=== PATIENT | female | born 1955 | race Caucasian/White ===

== ENCOUNTER 2020-01-19 14:50 | Outpatient (CLI) | payer MEDICARE, SELFPAY ==
--- NOTE | ~2020-01-19 | MM_ITS ---
EXAMINATION: MM screening [facility] BI w torie HISTORY: Screening mammogram TECHNIQUE: Craniocaudal and mediolateral oblique 3-D tomosynthesis images were obtained and synthetic 2-D images were generated. CAD analysis was submitted and interpreted. COMPARISON: 01/09/2019, 01/02/2018, 12/31/2016 BREAST PARENCHYMAL COMPOSITION: There are scattered areas of fibroglandular density. FINDINGS: A focal asymmetry in the middle third of the outer right breast is stable on multiple prior examinations. There is no evidence of suspicious mass, calcification, or architectural distortion to suggest malignancy in either breast. There has been no suspicious interval change. IMPRESSION: 1. No mammographic evidence of malignancy. 2. Recommend routine screening mammography in one year. BI-RADS Category 2: Benign finding(s). Reviewed, dictated and finalized at location A.
== END 2020-01-19 14:51 | disposition home or self-care (01) ==
LOC: CHSIMG 14:54
PROVIDERS: PCP Internal Medicine; Visit Provider Internal Medicine
DX: Z12.31 Encounter for screening mammogram for malignant neoplasm of breast (principal)
CPT/HCPCS: 77063; 77067

== ENCOUNTER 2020-01-20 07:55 | Outpatient (CLI) | payer MEDICARE, SELFPAY ==
[2020-01-20 08:17] LABS: Hemoglobin A1C 6.4 % (<5.7)
[2020-01-20 11:13] LABS: Anion Gap 12.3 mmol/L (7-16); Blood Urea Nitrogen 27 mg/dL (7-18); Calcium 9.4 mg/dL (8.5-10.1); Carbon Dioxide 29 mmol/L (21-32); Chloride 106 mmol/L (98-108); Estimated Glomerular Filt Rate 55; Glucose 91 mg/dL (70-99); Osmolality Calculated 299 mOsm/kg (285-295); Potassium 5.3 mmol/L (3.5-5.1); Sodium 142 mmol/L (136-145)
== END 2020-01-20 07:56 | disposition home or self-care (01) ==
PROVIDERS: PCP Internal Medicine; Visit Provider Internal Medicine
DX: E11.65 Type 2 diabetes mellitus with hyperglycemia (principal)
CPT/HCPCS: 36415; 80048; 83036

== ENCOUNTER 2020-01-29 08:01 | Outpatient (CLI) | payer MEDICARE, SELFPAY ==
--- NOTE | ~2020-01-29 | US_ITS ---
US pelvic complete w TV DATE: 01/29/2020 10:16 INDICATION: Excessive weight gain. Status post hysterectomy and oophorectomy. TECHNIQUE: Real-time imaging via transabdominal and transvaginal approaches COMPARISON: None FINDINGS: An approximately 5 cm multi-septated cystic lesion is noted in the left adnexal area, with suggestion of solid as well as cystic components. This is likely of ovarian etiology; benign or malig nant pathology is possible. Consider further evaluation with CT abdomen pelvis examination. IMPRESSION: Approximately 5 cm multiloculated cyst complex solid and cystic mass in the left adnexal area suggesting ovarian lesion. Consider CT abdomen pelvis for further evaluation Reviewed, dictated and finalized at Location A. Reviewed, dictated and finalized at location A. IMPRESSION: Approximately 5 cm multiloculated cyst complex solid and cystic mas s in the left adnexal area suggesting ovarian lesion. Consider CT abdomen pelvis for further evaluation
--- NOTE | ~2020-01-29 | US_ITS ---
US abdomen complete EXAMINATION: US Abdomen Complete INDICATION: Weight gain after changing meds. Possible ascites. PROCEDURE: Realtime High Resolution abdomen ultrasound. COMPARISON: No prior studies for comparison FINDINGS: Gallbladder within normal limits. No gallstones, pericholecystic fluid, gallbladder wall t hickening or biliary dilatation. Common bile duct measures 4 mm. Liver echotexture within normal limits without focal mass. Pancreas within normal limits. Pancreati c tail is obscured by bowel gas. Spleen is enlarged measuring 13.3 cm. Renal echotexture is within n ormal limits bilaterally without hydronephrosis, contour deforming mass or renal stone. Right kidney measures 9.8 cm. Left kidney measures 11.3 cm. Visualized aspects of the aorta and IVC are within normal limits. Portal vein is patent. No sonograph ic Rodrigues's sign indicated by the technologist. No ascites visualized. IMPRESSION: 1: Splenomegaly. Reviewed, dictated and finalized at location B. IMPRESSION: 1: Splenomegaly.
== END 2020-01-29 08:02 | disposition home or self-care (01) ==
PROVIDERS: PCP Internal Medicine; Visit Provider Internal Medicine
DX: R18.8 Other ascites (principal)
CPT/HCPCS: 76700; 76830; 76856

== ENCOUNTER 2020-02-03 07:45 | Outpatient (CLI) | payer MEDICARE, SELFPAY ==
--- NOTE | ~2020-02-03 | CT_ITS ---
EXAMINATION: CT abdomen pelvis w con DATE: 02/03/2020 08:28 INDICATION: Left ovarian mass. Sudden weight gain and fluid buildup. History of surgical removal of the uterus and ovaries. Partial colon resection due to endometriosis. TECHNIQUE: Computed tomography (CT) of the abdomen and pelvis was performed with 100 cc Omnipaque 350 intravenous contrast. Automated exposure control and iterative reconstruction technique were employe d. Exam dose: 1561.25 mGy-cm total exam DLP. COMPARISON: 01/29/2020 complete abdominal ultrasound examination 01/29/2020 pelvic ultrasound examination with transvaginal views FINDINGS: 5 mm pleura-based nodule, left lower lobe (series 4 image 29) there are 3 additional pleura l-based nodules in the left lower lobe, with attenuation consistent with calcification. These are all likely sequela of old pulmonary granulomatous disease. There is minimal discoid atelectasis or scarr ing of the lingula. Heart size is within normal range. No pericardial or pleural effusion. Small sliding hiatal hernia. The gallbladder is present. No gallbladder wall thickening or pericholecystic fluid or inflammation. No hepatic space-occupying mass lesion. No bile duct or pancreatic duct dilatation. No pancreatic mas s lesion or calcification. Normal splenic size. Normal morphology of the adrenal glands. No renal mass lesion. No urinary tract calculus or hydroureteronephrosis. The urinary bladder is unre markable. There is atherosclerotic calcification of the abdominal aorta but no aneurysm. There are numerous surgical clips in the pelvic area. The uterus is absent. No right ovary is evident . There is a left adnexal approximately 4 x 4 0.5 cm multilocular complex mass. Diffusion diagnosis i ncludes ovarian cystadenoma, cystadenocarcinoma, endometrioma, less likely abscess. Consider gynecolo gic consultation. No bowel obstruction, bowel wall thickening, pneumatosis or intraperitoneal free air. There are ventral abdominal wall radiopaque sutures. Surgical abdominal wall scar. There is severe degenerative disc disease at L5-S1. Moderate degenerative disease is noted at L3-4, w ith associated minimal retrolisthesis. IMPRESSION: Approximately 4 x 4.5 cm multiloculated complex left adnexal mass; differential diagnosi s includes ovarian benign or malignant neoplasm, endometrioma, less likely abscess [Granulomatous disease Small sliding hiatal hernia Status post hysterectomy Reviewed, dictated and finalized at Location A. Reviewed, dictated and finalized at location B. IMPRESSION: Approximately 4 x 4.5 cm multiloculated complex left adnexal mass; differential diagnosis includes ovarian benign or malignant neoplasm, endometr ioma, less likely abscess [Granulomatous disease Small sliding hiatal hernia Status post hysterectomy
[2020-02-07 04:28] LABS: CA-125 12 U/mL (<35)
== END 2020-02-03 07:46 | disposition home or self-care (01) ==
PROVIDERS: PCP Internal Medicine; Visit Provider Internal Medicine
DX: C56.2 Malignant neoplasm of left ovary (principal); D39.10 Neoplasm of uncertain behavior of unspecified ovary
CPT/HCPCS: 36415; 74177; 86304; Q9965

== ENCOUNTER 2020-03-02 07:28 | Outpatient (CLI) | payer MEDICARE, SELFPAY ==
[2020-03-02 09:01] LABS: Anion Gap 9 mmol/L (8-16); Blood Urea Nitrogen 26 mg/dL (7-18); Calcium 9.5 mg/dL (8.5-10.1); Carbon Dioxide 31 mmol/L (21-32); Chloride 103 mmol/L (98-108); Estimated Glomerular Filt Rate 52; Glucose 73 mg/dL (70-99); Osmolality Calculated 299 mOsm/kg (285-295); Potassium 4.5 mmol/L (3.5-5.1); Sodium 143 mmol/L (136-145); Uric Acid 6.9 mg/dL (2.6-6.0)
== END 2020-03-02 07:29 | disposition home or self-care (01) ==
LOC: CHSLAB 07:29
PROVIDERS: PCP Internal Medicine; Visit Provider Internal Medicine
DX: E79.0 Hyperuricemia without signs of inflammatory arthritis and tophaceous disease (principal); I10 Essential (primary) hypertension
CPT/HCPCS: 36415; 80048; 84550

== ENCOUNTER 2020-04-27 08:09 | Outpatient (CLI) | payer MEDICARE, SELFPAY ==
[2020-04-27 08:34] LABS: Add Urine Microscopic? NO; Appearance Urine Clear (Clear); Bilirubin Urine Negative (Negative); Blood Urine Negative (Negative); Color Urine Yellow (Yellow); Glucose Urine UA Negative (Negative); Ketones Urine Negative (Negative); Leukocyte Esterase Ur Negative (Negative); Nitrate Urine Negative (Negative); Protein Urine Negative (Negative); Urobilinogen Urine 0.2 mg/dL (0.2-1.0)
[2020-04-27 08:40] LABS: Hemoglobin A1C 6.7 % (<5.7)
[2020-04-27 08:57] LABS: Creatinine Urine 87.64 mg/dL (40-278); MALB Creatinine Ratio 14.8 mg/g (0-30); Microalbumin Urine Random < 13.0 mg/L
[2020-04-27 09:37] LABS: Alanine Aminotransferase 39 U/L (14-59); Albumin Level 4.4 g/dL (3.4-5.0); Alkaline Phosphatase 63 U/L (46-116); Anion Gap 11 mmol/L (8-16); Aspartate Amino Transferase 19 U/L (15-37); Bilirubin,Total 0.5 mg/dL (0.00-1.00); Blood Urea Nitrogen 22 mg/dL (7-18); Calcium 9.4 mg/dL (8.5-10.1); Carbon Dioxide 26 mmol/L (21-32); Chloride 104 mmol/L (98-108); Cholesterol 194 mg/dL (0-200); Creatine Kinase 74 U/L (26-192); Estimated Glomerular Filt Rate > 60; Glucose 148 mg/dL (70-99); HDL Direct 60 mg/dL (40-60); LDL Cholesterol Calculated 105 mg/dL (<130); Osmolality Calculated 298 mOsm/kg (285-295); Sodium 141 mmol/L (136-145); Total Protein 7.6 g/dL (6.4-8.2); Triglycerides 144 mg/dL (0-150); Uric Acid 4.7 mg/dL (2.6-6.0)
== END 2020-04-27 08:10 | disposition home or self-care (01) ==
LOC: CHSLAB 08:10
PROVIDERS: PCP Internal Medicine; Visit Provider Internal Medicine
DX: E79.0 Hyperuricemia without signs of inflammatory arthritis and tophaceous disease (principal); E78.2 Mixed hyperlipidemia; I10 Essential (primary) hypertension
CPT/HCPCS: 36415; 80053; 80061; 81003; 82043; 82550; 83036; 84550

== ENCOUNTER 2020-10-06 10:31 | Outpatient (CLI) | payer MEDICARE, SELFPAY ==
--- NOTE | ~2020-10-06 | DEXA_ITS ---
Bone Density Report Name: Magaly Howard Age: 65 Sex: Female Ethnicity: White Date of : 1955 Indication: postmenopausal; screening for osteoporosis; hysterectomy; Referring Provider: Janki Lutz Study: Bone densitometry was performed. Exam Date: October 06, 2020 Accession number: [id number] Bone Density: Region BMD T-score Z-score Classification AP Spine(L1-L4) 0.941 -1.0 1.0 Normal Femoral Neck (Left) 0.703 -1.3 0.3 Osteopenia Total Hip (Left) 0.973 0.3 1.6 Normal Femoral Neck (Right) 0.730 -1.1 0.6 Osteopenia Total Hip (Right) 0.950 0.1 1.4 Normal Femoral Neck Mean 0.716 -1.2 0.4 Osteopenia Total Hip Mean 0.961 0.2 1.5 Normal World Health Organization criteria for BMD impression classify patients as: Normal (T-score at or above -1.0), Osteopenia (T-score between -1.0 and -2.5), or Osteoporosis (T-score at or below -2.5). 10-year Fracture Risk(1): Major Osteoporotic Fracture 8.6% Hip Fracture 0.9% Reported Risk Factors: [place] (), Neck BMD=0.703, BMI=32.3 (1) FRAX(R) Version 3.08. Fracture probability calculated for an untreated patient. Fracture probability may be lower if the patient has received treatment. Previous Exams: Region Exam Age BMD T-score BMD Change BMD Change Date g/cm2 vs Baseline vs Previous AP Spine (L1-L4) 10/06/2020 65 0.941 -1.0 0.034 (3.8%)# -0.013 (-1.4%) 05/09/2018 62 0.954 -0.8 0.047 (5.2%)* 0.047 (5.2%)* 06/27/2012 57 0.907 -1.3 Total Hip(Left) 10/06/2020 65 0.973 0.3 -0.052 (-5.0%) -0.073 (-7.0%) 05/09/2018 62 1.046 0.9 0.021 (2.1%) 0.021 (2.1%) 06/27/2012 57 1.025 0.7 Total Hip(Right) 10/06/2020 65 0.950 0.1 -0.073 (-7.2%) -0.073 (-7.2%) 06/27/2012 57 1.023 0.7 *Denotes significance at 95% confidence level, LSC for AP Spine = 0.022 g/cm2, LSC for Total Hip = 0.027 g/cm2 # Denotes dissimilar scan types or analysis methods Clinical Information Provided by Patient: Has used the following medications: Vitamin D, Calcium Has the following medical conditions: Hysterectomy Patient maximum height was 70 Onset of menses at age 10 Number of children 2 Missed period for more than 6 months in a row Impression: The patient has low bone mass, based on the Left Femoral Neck T-score. No significant bone loss was observed. Discussion: BONE DENSITY IS LOW AT ONE OR MORE SKELETAL SITES. This patient's low
== END 2020-10-06 10:32 | disposition home or self-care (01) ==
PROVIDERS: PCP Internal Medicine; Visit Provider Internal Medicine
DX: M81.0 Age-related osteoporosis without current pathological fracture (principal)
CPT/HCPCS: 77080

== ENCOUNTER 2020-10-31 07:49 | Outpatient (CLI) | payer MEDICARE, SELFPAY ==
[2020-10-31 08:05] LABS: Add Urine Microscopic? YES; Appearance Urine Clear (Clear); Bilirubin Urine Negative (Negative); Blood Urine Negative (Negative); Color Urine Yellow (Yellow); Glucose Urine UA Negative (Negative); Ketones Urine Negative (Negative); Leukocyte Esterase Ur Trace (Negative); Nitrate Urine Negative (Negative); Protein Urine Negative (Negative); Urobilinogen Urine 0.2 mg/dL (0.2-1.0)
[2020-10-31 08:48] LABS: Bacteria Urine Trace /hpf; RBC Urine 0-2 /hpf (0-2); Squamous Epithelial Cell Urine Moderate /hpf (Few); WBC Urine 0-3 /hpf (0-3)
[2020-10-31 09:42] LABS: Creatinine Urine 100.45 mg/dL (40-278); Hemoglobin A1C 7.5 % (<5.7); MALB Creatinine Ratio 15.2 mg/g (0-30); Microalbumin Urine Random 15.3 mg/L
[2020-10-31 09:57] LABS: Alanine Aminotransferase 55 U/L (14-59); Albumin Level 3.9 g/dL (3.4-5.0); Alkaline Phosphatase 67 U/L (46-116); Anion Gap 9 mmol/L (8-16); Aspartate Amino Transferase 28 U/L (15-37); Bilirubin,Total 0.5 mg/dL (0.00-1.00); Blood Urea Nitrogen 18 mg/dL (7-18); Calcium 9.2 mg/dL (8.5-10.1); Carbon Dioxide 28 mmol/L (21-32); Chloride 104 mmol/L (98-108); Cholesterol 209 mg/dL (0-200); Creatine Kinase 49 U/L (26-192); Estimated Glomerular Filt Rate > 60; Glucose 142 mg/dL (70-99); HDL Direct 43 mg/dL (40-60); LDL Cholesterol Calculated 139 mg/dL (<130); Osmolality Calculated 295 mOsm/kg (285-295); Potassium 4.6 mmol/L (3.5-5.1); Sodium 141 mmol/L (136-145); Triglycerides 137 mg/dL (0-150); Uric Acid 4.7 mg/dL (2.6-6.0)
== END 2020-10-31 07:50 | disposition home or self-care (01) ==
LOC: CHSLAB 07:51
PROVIDERS: PCP Internal Medicine; Visit Provider Internal Medicine
DX: E78.2 Mixed hyperlipidemia (principal); I10 Essential (primary) hypertension; E79.0 Hyperuricemia without signs of inflammatory arthritis and tophaceous disease; E11.65 Type 2 diabetes mellitus with hyperglycemia; M81.0 Age-related osteoporosis without current pathological fracture
CPT/HCPCS: 36415; 80053; 80061; 81001; 82043; 82550; 83036; 84550

== ENCOUNTER 2021-01-20 08:50 | Outpatient (CLI) | payer MEDICARE, SELFPAY ==
--- NOTE | ~2021-01-20 | MM_ITS ---
EXAMINATION: MM screening [facility] BI w torie HISTORY: Screening mammogram TECHNIQUE: Craniocaudal and mediolateral oblique 3-D tomosynthesis images were obtained and synthetic 2-D images were generated. CAD analysis was submitted and interpreted. COMPARISON: 01/19/2020, 01/09/2019, 01/02/2018 BREAST PARENCHYMAL COMPOSITION: There are scattered areas of fibroglandular density. FINDINGS: Again noted is stable focal asymmetry in the middle third of the outer right breast, consis tent with a benign finding. There is no evidence of suspicious mass, calcification, or architectural distortion to suggest malignancy in either breast. There has been no suspicious interval change. IMPRESSION: 1. No mammographic evidence of malignancy. 2. Recommend routine screening mammography in one year. BI-RADS Category 2: Benign finding(s). Reviewed, dictated and finalized at location A.
== END 2021-01-20 08:51 | disposition home or self-care (01) ==
LOC: CHSIMG 08:51
PROVIDERS: PCP Internal Medicine; Visit Provider Internal Medicine
DX: Z12.31 Encounter for screening mammogram for malignant neoplasm of breast (principal)
CPT/HCPCS: 77063; 77067

== ENCOUNTER 2021-01-30 07:58 | Outpatient (CLI) | payer MEDICARE, SELFPAY ==
[2021-01-30 08:23] LABS: Hemoglobin A1C 7.3 % (<5.7)
[2021-01-30 08:24] LABS: Creatinine Urine 127.52 mg/dL (40-278); MALB Creatinine Ratio 12.8 mg/g (0-30); Microalbumin Urine Random 16.4 mg/L
[2021-01-30 09:13] LABS: Alanine Aminotransferase 59 U/L (14-59); Albumin Level 4.2 g/dL (3.4-5.0); Alkaline Phosphatase 58 U/L (46-116); Anion Gap 8 mmol/L (8-16); Aspartate Amino Transferase 30 U/L (15-37); Bilirubin,Total 0.5 mg/dL (0.00-1.00); Blood Urea Nitrogen 23 mg/dL (7-18); Calcium 9.6 mg/dL (8.5-10.1); Carbon Dioxide 30 mmol/L (21-32); Chloride 107 mmol/L (98-108); Cholesterol 227 mg/dL (0-200); Estimated Glomerular Filt Rate > 60; Glucose 98 mg/dL (70-99); HDL Direct 49 mg/dL (40-60); LDL Cholesterol Calculated 147 mg/dL (<130); Osmolality Calculated 303 mOsm/kg (285-295); Potassium 4.6 mmol/L (3.5-5.1); Sodium 145 mmol/L (136-145); Total Protein 7.1 g/dL (6.4-8.2); Triglycerides 155 mg/dL (0-150)
== END 2021-01-30 07:59 | disposition home or self-care (01) ==
LOC: CHSLAB 07:59
PROVIDERS: PCP Internal Medicine; Visit Provider Internal Medicine
DX: E11.65 Type 2 diabetes mellitus with hyperglycemia (principal); E78.2 Mixed hyperlipidemia
CPT/HCPCS: 36415; 80053; 80061; 82043; 83036

== ENCOUNTER 2021-05-24 08:28 | Outpatient (CLI) | payer MEDICARE, SELFPAY ==
[2021-05-24 08:43] LABS: Basophils Absolute Auto 0.02 K/mm3 (0.00-0.10); Basophils Percent Auto 0.3 % (0.0-1.0); Eosinophils Absolute Auto 0.27 K/mm3 (0.02-0.50); Eosinophils Percent Auto 4.4 % (1.0-6.0); Hematocrit 40.6 % (35.0-42.0); Hemoglobin 13.1 g/dL (11.7-13.8); Immature Granulocyte Absolute 0.02 K/mm3 (0.00-0.00); Immature Granulocyte Percent A 0.3 % (0.0-0.0); Lymphocytes Absolute Auto 1.39 K/mm3 (1.10-4.50); Lymphocytes Percent Auto 22.9 % (18.0-42.0); Mean Corpuscular HGB Conc 32.3 g/dL (32.0-36.0); Mean Corpuscular Hemoglobin 29.3 pg (27.0-31.0); Mean Corpuscular Volume 90.8 fL (78.0-102.0); Mean Platelet Volume 9.6 fl (9.2-11.8); Monocytes Absolute Auto 0.47 K/mm3 (0.10-0.90); Monocytes Percent Auto 7.7 % (2.0-11.0); Neutrophils Absolute Auto 3.9 K/mm3 (1.7-7.2); Neutrophils Percent Auto 64.4 % (50.0-70.0); Platelet Count Result 208 K/mm3 (150-420); Red Blood Count 4.47 M/mm3 (4.20-5.40); Red Cell Distribution Width 13.1 % (11.6-14.4); White Blood Count 6.1 K/mm3 (4.8-10.8)
[2021-05-24 08:54] LABS: Add Urine Microscopic? NO; Appearance Urine Clear (Clear); Bilirubin Urine Negative (Negative); Blood Urine Negative (Negative); Color Urine Light Yellow (Yellow); Glucose Urine UA Negative (Negative); Ketones Urine Negative (Negative); Leukocyte Esterase Ur Negative (Negative); Nitrate Urine Negative (Negative); Protein Urine Negative (Negative); Urobilinogen Urine 0.2 mg/dL (0.2-1.0)
[2021-05-24 08:57] LABS: Hemoglobin A1C 7.3 % (<5.7)
[2021-05-24 09:40] LABS: Alanine Aminotransferase 42 U/L (14-59); Albumin Level 4.1 g/dL (3.4-5.0); Alkaline Phosphatase 56 U/L (46-116); Anion Gap 8 mmol/L (8-16); Aspartate Amino Transferase 17 U/L (15-37); Bilirubin,Total 0.5 mg/dL (0.00-1.00); Blood Urea Nitrogen 19 mg/dL (7-18); Calcium 9.2 mg/dL (8.5-10.1); Carbon Dioxide 28 mmol/L (21-32); Chloride 104 mmol/L (98-108); Cholesterol 240 mg/dL (0-200); Creatine Kinase 66 U/L (26-192); Estimated Glomerular Filt Rate > 60; Free T3 2.74 pg/mL (2.18-3.98); Free T4 Free Thyroxine 0.93 ng/dL (0.76-1.46); Glucose 140 mg/dL (70-99); HDL Direct 51 mg/dL (40-60); LDL Cholesterol Calculated 166 mg/dL (<130); Osmolality Calculated 294 mOsm/kg (285-295); Potassium 4.7 mmol/L (3.5-5.1); Sodium 140 mmol/L (136-145); Thyroid Stimulating Hormone 1.17 uIU/mL (0.36-3.74); Total Protein 7.2 g/dL (6.4-8.2); Triglycerides 115 mg/dL (0-150)
== END 2021-05-24 08:29 | disposition home or self-care (01) ==
LOC: CHSLAB 08:30
PROVIDERS: PCP Internal Medicine; Visit Provider Internal Medicine
DX: E11.65 Type 2 diabetes mellitus with hyperglycemia (principal); E79.0 Hyperuricemia without signs of inflammatory arthritis and tophaceous disease; E78.2 Mixed hyperlipidemia; R53.82 Chronic fatigue, unspecified
CPT/HCPCS: 36415; 80053; 80061; 81003; 82550; 83036; 84439; 84443; 84481; 85025

== ENCOUNTER 2021-09-11 08:08 | Outpatient (CLI) | payer MEDICARE, SELFPAY ==
[2021-09-11 09:41] LABS: Hemoglobin A1C 6.7 % (<5.7)
[2021-09-11 10:17] LABS: Anion Gap 12 mmol/L (8-16); Blood Urea Nitrogen 28 mg/dL (7-18); Calcium 9.3 mg/dL (8.5-10.1); Carbon Dioxide 28 mmol/L (21-32); Chloride 105 mmol/L (98-108); Cholesterol 152 mg/dL (0-200); Creatine Kinase 63 U/L (26-192); Estimated Glomerular Filt Rate 60; Glucose 79 mg/dL (70-99); HDL Direct 52 mg/dL (40-60); LDL Cholesterol Calculated 80 mg/dL (<130); Osmolality Calculated 304 mOsm/kg (285-295); Potassium 4.5 mmol/L (3.5-5.1); Sodium 145 mmol/L (136-145); Triglycerides 99 mg/dL (0-150)
== END 2021-09-11 08:09 | disposition home or self-care (01) ==
LOC: CHSLAB 08:10
PROVIDERS: PCP Internal Medicine; Visit Provider Internal Medicine
DX: E78.2 Mixed hyperlipidemia (principal); E11.65 Type 2 diabetes mellitus with hyperglycemia
CPT/HCPCS: 36415; 80048; 80061; 82550; 83036

== ENCOUNTER 2022-02-20 08:21 | Outpatient (CLI) | payer MEDICARE, SELFPAY ==
--- NOTE | ~2022-02-20 | MM_ITS ---
EXAMINATION: MM screening [facility] BI w torie HISTORY: Screening mammogram TECHNIQUE: Craniocaudal and mediolateral oblique 3-D tomosynthesis images were obtained and synthetic 2-D images were generated. CAD analysis was submitted and interpreted. COMPARISON: 01/30/2021, 01/19/2020, 01/09/2019 BREAST PARENCHYMAL COMPOSITION: There are scattered areas of fibroglandular density. FINDINGS: There are stable focal asymmetry of the breasts, consistent with benign findings. There is no suspicious mass, calcification, or architectural distortion to suggest malignancy in either breast . There has been no suspicious interval change. IMPRESSION: 1. No mammographic evidence of malignancy. 2. Recommend routine screening mammography in one year. BI-RADS Category 2: Benign finding(s). Reviewed, dictated and finalized at location A.
== END 2022-02-20 08:22 | disposition home or self-care (01) ==
LOC: CHSIMG 08:23
PROVIDERS: PCP Internal Medicine; Visit Provider Internal Medicine
DX: Z12.31 Encounter for screening mammogram for malignant neoplasm of breast (principal)
CPT/HCPCS: 77063; 77067

== ENCOUNTER 2022-03-13 07:27 | Outpatient (CLI) | payer MEDICARE, SELFPAY ==
[2022-03-13 07:43] LABS: Add Urine Microscopic? NO; Appearance Urine Clear (Clear); Bilirubin Urine Negative (Negative); Blood Urine Negative (Negative); Color Urine Light Yellow (Yellow); Glucose Urine UA Negative (Negative); Ketones Urine Negative (Negative); Leukocyte Esterase Ur Negative (Negative); Nitrate Urine Negative (Negative); Protein Urine Negative (Negative); Urobilinogen Urine 0.2 mg/dL (0.2-1.0)
[2022-03-13 07:55] LABS: Alanine Aminotransferase 25 U/L (14-59); Albumin Level 4.1 g/dL (3.4-5.0); Alkaline Phosphatase 53 U/L (46-116); Anion Gap 3 mmol/L (8-16); Aspartate Amino Transferase 15 U/L (15-37); Bilirubin,Total 0.4 mg/dL (0.00-1.00); Blood Urea Nitrogen 23 mg/dL (7-18); Calcium 9.2 mg/dL (8.5-10.1); Carbon Dioxide 31 mmol/L (21-32); Chloride 104 mmol/L (98-108); Cholesterol 247 mg/dL (0-200); Creatinine Urine 103.45 mg/dL (40-278); Estimated Glomerular Filt Rate 58; Glucose 120 mg/dL (70-99); HDL Direct 54 mg/dL (40-60); Hemoglobin A1C 6.9 % (<5.7); LDL Cholesterol Calculated 164 mg/dL (<130); MALB Creatinine Ratio 12.5 mg/g (0-30); Microalbumin Urine Random < 13.0 mg/L; Osmolality Calculated 290 mOsm/kg (285-295); Potassium 4.6 mmol/L (3.5-5.1); Sodium 138 mmol/L (136-145); Total Protein 7.3 g/dL (6.4-8.2); Triglycerides 144 mg/dL (0-150); Uric Acid 5.1 mg/dL (2.6-6.0)
[2022-03-15 14:17] LABS: Vitamin D 25 Hydroxy 36 ng/mL (30-100)
== END 2022-03-13 07:28 | disposition home or self-care (01) ==
LOC: CHSLAB 07:30
PROVIDERS: PCP Internal Medicine; Visit Provider Internal Medicine
DX: E78.2 Mixed hyperlipidemia (principal); E11.9 Type 2 diabetes mellitus without complications; M81.0 Age-related osteoporosis without current pathological fracture; I10 Essential (primary) hypertension; E79.0 Hyperuricemia without signs of inflammatory arthritis and tophaceous disease
CPT/HCPCS: 36415; 80053; 80061; 81003; 82043; 82306; 83036; 84550

== ENCOUNTER 2022-09-10 07:19 | Outpatient (CLI) | payer MEDICARE, SELFPAY ==
[2022-09-10 07:54] LABS: Add Urine Microscopic? NO; Appearance Urine Clear (Clear); Bilirubin Urine Negative (Negative); Blood Urine Negative (Negative); Color Urine Light Yellow (Yellow); Glucose Urine UA Negative (Negative); Ketones Urine Negative (Negative); Leukocyte Esterase Ur Negative (Negative); Nitrate Urine Negative (Negative); Protein Urine Negative (Negative); Specific Grav Ur 1.025 (1.010-1.020); Urobilinogen Urine 0.2 mg/dL (0.2-1.0)
[2022-09-10 08:01] LABS: Creatinine Urine 160.36 mg/dL (40-278); MALB Creatinine Ratio 8.1 mg/g (0-30); Microalbumin Urine Random < 13.0 mg/L
[2022-09-10 08:03] LABS: Hemoglobin A1C 6.5 % (<5.7)
[2022-09-10 08:23] LABS: Alanine Aminotransferase 23 U/L (14-59); Albumin Level 4.1 g/dL (3.4-5.0); Alkaline Phosphatase 55 U/L (46-116); Anion Gap 9 mmol/L (8-16); Aspartate Amino Transferase 18 U/L (15-37); Bilirubin,Total 0.5 mg/dL (0.00-1.00); Blood Urea Nitrogen 38 mg/dL (7-18); Calcium 9.6 mg/dL (8.5-10.1); Carbon Dioxide 31 mmol/L (21-32); Chloride 103 mmol/L (98-108); Cholesterol 255 mg/dL (0-200); Creatine Kinase 46 U/L (26-192); Estimated Glomerular Filt Rate 48; Glucose 106 mg/dL (70-99); HDL Direct 56 mg/dL (40-60); LDL Cholesterol Calculated 168 mg/dL (<130); Osmolality Calculated 305 mOsm/kg (285-295); Sodium 143 mmol/L (136-145); Total Protein 7.3 g/dL (6.4-8.2); Triglycerides 153 mg/dL (0-150); Uric Acid 7.7 mg/dL (2.6-6.0)
== END 2022-09-10 07:20 | disposition home or self-care (01) ==
LOC: CHSLAB 07:24
PROVIDERS: PCP Internal Medicine; Visit Provider Internal Medicine
DX: E11.65 Type 2 diabetes mellitus with hyperglycemia (principal); I10 Essential (primary) hypertension; E79.0 Hyperuricemia without signs of inflammatory arthritis and tophaceous disease; E78.2 Mixed hyperlipidemia
CPT/HCPCS: 36415; 80053; 80061; 81003; 82043; 82550; 83036; 84550

== ENCOUNTER 2022-12-05 08:12 | Outpatient (CLI) | payer MEDICARE, SELFPAY ==
[2022-12-05 09:28] LABS: Alanine Aminotransferase 23 U/L (14-59); Albumin Level 4.3 g/dL (3.4-5.0); Alkaline Phosphatase 55 U/L (46-116); Anion Gap 7 mmol/L (8-16); Aspartate Amino Transferase 16 U/L (15-37); Bilirubin,Total 0.7 mg/dL (0.00-1.00); Blood Urea Nitrogen 26 mg/dL (7-18); Calcium 9.5 mg/dL (8.5-10.1); Carbon Dioxide 30 mmol/L (21-32); Chloride 104 mmol/L (98-108); Cholesterol 208 mg/dL (0-200); Estimated Glomerular Filt Rate 49; Glucose 118 mg/dL (70-99); HDL Direct 65 mg/dL (40-60); LDL Cholesterol Calculated 124 mg/dL (<130); Osmolality Calculated 297 mOsm/kg (285-295); Potassium 4.8 mmol/L (3.5-5.1); Sodium 141 mmol/L (136-145); Total Protein 7.5 g/dL (6.4-8.2); Triglycerides 93 mg/dL (0-150); Uric Acid 5.3 mg/dL (2.6-6.0)
== END 2022-12-05 08:13 | disposition home or self-care (01) ==
LOC: CHSLAB 08:13
PROVIDERS: PCP Internal Medicine; Visit Provider Internal Medicine
DX: E79.0 Hyperuricemia without signs of inflammatory arthritis and tophaceous disease (principal); I10 Essential (primary) hypertension; E78.2 Mixed hyperlipidemia
CPT/HCPCS: 36415; 80053; 80061; 84550

== ENCOUNTER 2022-12-27 08:30 | Outpatient (CLI) | payer MEDICARE, SELFPAY ==
--- NOTE | ~2022-12-27 | DEXA_ITS ---
Bone Density Report Name: MARJ LOOMIS Age: 67 Sex: Female Ethnicity: White Date of : 1955 Indication: hyperparathyroidism; height loss; hysterectomy; Referring Provider: Janki Lutz Study: Bone densitometry was performed. Exam Date: December 27, 2022 Accession number: [id number] Bone Density: Region BMD T-score Z-score Classification AP Spine(L1-L4) 0.960 -0.8 1.3 Normal Femoral Neck (Left) 0.701 -1.3 0.4 Osteopenia Total Hip (Left) 0.938 0.0 1.4 Normal Femoral Neck (Right) 0.704 -1.3 0.5 Osteopenia Total Hip (Right) 0.960 0.1 1.6 Normal Femoral Neck Mean 0.703 -1.3 0.4 Osteopenia Total Hip Mean 0.949 0.1 1.5 Normal World Health Organization criteria for BMD impression classify patients as: Normal (T-score at or above -1.0), Osteopenia (T-score between -1.0 and -2.5), or Osteoporosis (T-score at or below -2.5). 10-year Fracture Risk(1): Major Osteoporotic Fracture 8.8% Hip Fracture 1.0% Reported Risk Factors: [place] (), Neck BMD=0.701, BMI=33.2 (1) FRAX(R) Version 3.08. Fracture probability calculated for an untreated patient. Fracture probability may be lower if the patient has received treatment. Clinical Information Provided by Patient: Has used the following medications: Vitamin D Has the following medical conditions: Hyperparathyroidism, Hysterectomy Patient maximum height was 70 Menopause Age: 40 No regular weight bearing exercise Onset of menses at age 8 Number of children 2 Missed period for more than 6 months in a row Impression: The patient has low bone mass, based on the Left Femoral Neck T-score. Discussion: BONE DENSITY IS LOW AT ONE OR MORE SKELETAL SITES. This patient's lowest T-score is low at one or more skeletal sites. It meets the World Health Organization's (WHO) criteria for ?low bone mass? (T-score between -1.0 and -2.5). The patient's 10-year risk of fracture as calculated by FRAX is less than the threshold where pharmacological therapy is recommended by the National Osteoporosis Foundation (NOF). However, all treatment decisions require clinical judgment and consideration of individual patient factors, including patient preferences, comorbidities, previous drug use, risk factors not captured in the FRAX model (e.g., frailty, falls, vitamin D deficiency, increased bone turnover, interval significant decline in bone density) and possible under or overestimation of fracture risk by FRAX. The patient should follow a healthful lifestyle (good nutrition with adequate calcium and vitamin D, and appropriate weight-bearing exercise). Follow-Up: Consider repeating this study in 2 to 3 years to reassess this patient's status, or sooner if there is some new clinical indication. Reported by: Dr. Jose Angel Olson on 0
== END 2022-12-27 08:31 | disposition home or self-care (01) ==
LOC: CHSIMG 08:34
PROVIDERS: PCP Internal Medicine; Visit Provider Internal Medicine
DX: M81.0 Age-related osteoporosis without current pathological fracture (principal); M85.89 Other specified disorders of bone density and structure, multiple sites
CPT/HCPCS: 77080

== ENCOUNTER 2023-03-26 08:23 | Outpatient (CLI) | payer MEDICARE, SELFPAY ==
[2023-03-26 08:35] LABS: Basophils Absolute Auto 0.02 K/mm3 (0.00-0.10); Basophils Percent Auto 0.3 % (0.0-1.0); Eosinophils Absolute Auto 0.26 K/mm3 (0.02-0.50); Eosinophils Percent Auto 4.3 % (1.0-6.0); Hematocrit 42.4 % (35.0-42.0); Hemoglobin 13.4 g/dL (11.7-13.8); Immature Granulocyte Absolute 0.02 K/mm3 (0.00-0.00); Immature Granulocyte Percent A 0.3 % (0.0-0.0); Lymphocytes Absolute Auto 1.64 K/mm3 (1.10-4.50); Lymphocytes Percent Auto 26.8 % (18.0-42.0); Mean Corpuscular HGB Conc 31.6 g/dL (32.0-36.0); Mean Corpuscular Hemoglobin 28.8 pg (27.0-31.0); Mean Corpuscular Volume 91.2 fL (78.0-102.0); Monocytes Absolute Auto 0.49 K/mm3 (0.10-0.90); Neutrophils Absolute Auto 3.7 K/mm3 (1.7-7.2); Neutrophils Percent Auto 60.3 % (50.0-70.0); Platelet Count Result 224 K/mm3 (150-420); Red Blood Count 4.65 M/mm3 (4.20-5.40); Red Cell Distribution Width 13.5 % (11.6-14.4); White Blood Count 6.1 K/mm3 (4.8-10.8)
[2023-03-26 08:38] LABS: Appearance Urine Clear (Clear); Bilirubin Urine 3+ (Negative); Blood Urine Negative (Negative); Color Urine Light Yellow (Yellow); Glucose Urine UA Negative (Negative); Ketones Urine Negative (Negative); Leukocyte Esterase Ur 1+ (Negative); Nitrate Urine Negative (Negative); Protein Urine Negative (Negative); Specific Grav Ur <= 1.005 (1.010-1.020); Urobilinogen Urine 0.2 mg/dL (0.2-1.0)
[2023-03-26 08:42] LABS: Add Urine Microscopic? YES; Bacteria Urine Trace /hpf; RBC Urine None seen /hpf (0-2); Squamous Epithelial Cell Urine Few /hpf (Few)
[2023-03-26 08:48] LABS: Hemoglobin A1C 6.2 % (<5.7)
[2023-03-26 09:48] LABS: Alanine Aminotransferase 18 U/L (14-59); Albumin Level 4.1 g/dL (3.4-5.0); Alkaline Phosphatase 58 U/L (46-116); Anion Gap 9 mmol/L (8-16); Aspartate Amino Transferase 12 U/L (15-37); Bilirubin,Total 0.6 mg/dL (0.00-1.00); Blood Urea Nitrogen 35 mg/dL (7-18); Calcium 9.9 mg/dL (8.5-10.1); Carbon Dioxide 30 mmol/L (21-32); Chloride 104 mmol/L (98-108); Cholesterol 173 mg/dL (0-200); Estimated Glomerular Filt Rate 44; Free T4 Free Thyroxine 0.96 ng/dL (0.76-1.46); Glucose 98 mg/dL (70-99); HDL Direct 49 mg/dL (40-60); LDL Cholesterol Calculated 103 mg/dL (<130); Magnesium 1.7 mg/dL (1.8-2.4); Osmolality Calculated 304 mOsm/kg (285-295); Potassium 4.9 mmol/L (3.5-5.1); Sodium 143 mmol/L (136-145); Thyroid Stimulating Hormone 1.02 uIU/mL (0.36-3.74); Total Protein 7.5 g/dL (6.4-8.2); Triglycerides 105 mg/dL (0-150); Uric Acid 4.2 mg/dL (2.6-6.0)
== END 2023-03-26 08:24 | disposition home or self-care (01) ==
LOC: CHSLAB 08:25
PROVIDERS: PCP Internal Medicine; Visit Provider Internal Medicine
DX: E79.0 Hyperuricemia without signs of inflammatory arthritis and tophaceous disease (principal); E11.65 Type 2 diabetes mellitus with hyperglycemia; N18.2 Chronic kidney disease, stage 2 (mild); I10 Essential (primary) hypertension; E78.2 Mixed hyperlipidemia; R53.82 Chronic fatigue, unspecified
CPT/HCPCS: 36415; 80053; 80061; 81001; 83036; 83735; 84439; 84443; 84550; 85025

== ENCOUNTER 2023-04-16 08:00 | Outpatient (CLI) | payer MEDICARE, SELFPAY ==
--- NOTE | ~2023-04-16 | MM_ITS ---
EXAMINATION: MM screening [facility] BI w torie HISTORY: Screening mammogram TECHNIQUE: Craniocaudal and mediolateral oblique 3-D tomosynthesis images were obtained and synthetic 2-D images were generated. CAD analysis was submitted and interpreted. COMPARISON: 02/20/2022, 01/20/2021, 01/19/2020 BREAST PARENCHYMAL COMPOSITION: There are scattered areas of fibroglandular density. FINDINGS: Again noted are stable focal asymmetries of the breasts, consistent with benign findings. N o suspicious mass, calcification, or architectural distortion are identified in either breast to sugg est malignancy. There has been no suspicious interval change. IMPRESSION: 1. No mammographic evidence of malignancy. 2. Recommend routine screening mammography in one year. BI-RADS Category 2: Benign finding(s). Reviewed, dictated and finalized at location A.
== END 2023-04-16 08:01 | disposition home or self-care (01) ==
LOC: CHSIMG 08:01
PROVIDERS: PCP Internal Medicine; Visit Provider Internal Medicine
DX: Z12.31 Encounter for screening mammogram for malignant neoplasm of breast (principal)
CPT/HCPCS: 77063; 77067

== ENCOUNTER 2023-09-17 08:40 | Outpatient (CLI) | payer MEDICARE, SELFPAY ==
[2023-09-17 08:59] LABS: Appearance Urine Clear (Clear); Basophils Absolute Auto 0.02 K/mm3 (0.00-0.10); Basophils Percent Auto 0.3 % (0.0-1.0); Bilirubin Urine Negative (Negative); Blood Urine Negative (Negative); Color Urine Light Yellow (Yellow); Eosinophils Absolute Auto 0.22 K/mm3 (0.02-0.50); Eosinophils Percent Auto 3.5 % (1.0-6.0); Glucose Urine UA Negative (Negative); Hematocrit 41.4 % (35.0-42.0); Hemoglobin 13.2 g/dL (11.7-13.8); Immature Granulocyte Absolute 0.02 K/mm3 (0.00-0.00); Immature Granulocyte Percent A 0.3 % (0.0-0.0); Ketones Urine Negative (Negative); Leukocyte Esterase Ur Negative (Negative); Lymphocytes Absolute Auto 1.48 K/mm3 (1.10-4.50); Lymphocytes Percent Auto 23.8 % (18.0-42.0); Mean Corpuscular HGB Conc 31.9 g/dL (32.0-36.0); Mean Corpuscular Volume 87.7 fL (78.0-102.0); Mean Platelet Volume 9.3 fl (9.2-11.8); Monocytes Absolute Auto 0.49 K/mm3 (0.10-0.90); Monocytes Percent Auto 7.9 % (2.0-11.0); Neutrophils Percent Auto 64.2 % (50.0-70.0); Nitrate Urine Negative (Negative); Platelet Count Result 215 K/mm3 (150-420); Protein Urine Negative (Negative); Red Blood Count 4.72 M/mm3 (4.20-5.40); Red Cell Distribution Width 13.6 % (11.6-14.4); Urobilinogen Urine 0.2 mg/dL (0.2-1.0); White Blood Count 6.2 K/mm3 (4.8-10.8)
[2023-09-17 09:05] LABS: Add Urine Microscopic? NO
[2023-09-17 09:08] LABS: Hemoglobin A1C 5.9 % (<5.7)
[2023-09-17 09:50] LABS: Alanine Aminotransferase 23 U/L (14-59); Albumin Level 4.2 g/dL (3.4-5.0); Alkaline Phosphatase 52 U/L (46-116); Anion Gap 9 mmol/L (8-16); Aspartate Amino Transferase 14 U/L (15-37); Bilirubin,Total 0.7 mg/dL (0.00-1.00); Blood Urea Nitrogen 23 mg/dL (7-18); Calcium 9.1 mg/dL (8.5-10.1); Carbon Dioxide 30 mmol/L (21-32); Chloride 103 mmol/L (98-108); Cholesterol 178 mg/dL (0-200); Estimated Glomerular Filt Rate > 60; Glucose 103 mg/dL (70-99); HDL Direct 72 mg/dL (40-60); LDL Cholesterol Calculated 92 mg/dL (<130); Osmolality Calculated 297 mOsm/kg (285-295); Potassium 4.9 mmol/L (3.5-5.1); Sodium 142 mmol/L (136-145); Total Protein 7.1 g/dL (6.4-8.2); Triglycerides 68 mg/dL (0-150); Uric Acid 5.6 mg/dL (2.6-6.0)
== END 2023-09-17 08:41 | disposition home or self-care (01) ==
LOC: CHSLAB 08:42
PROVIDERS: PCP Internal Medicine; Visit Provider Internal Medicine
DX: E79.0 Hyperuricemia without signs of inflammatory arthritis and tophaceous disease (principal); I10 Essential (primary) hypertension; E11.65 Type 2 diabetes mellitus with hyperglycemia; E78.2 Mixed hyperlipidemia
CPT/HCPCS: 36415; 80053; 80061; 81003; 83036; 84550; 85025

== ENCOUNTER 2023-10-03 10:09 | Outpatient (CLI) | payer MEDICARE, SELFPAY ==
[2023-10-03 11:59] LABS: Free T3 2.82 pg/mL (2.18-3.98); Free T4 Free Thyroxine 0.92 ng/dL (0.76-1.46); Magnesium 1.7 mg/dL (1.8-2.4); Thyroid Stimulating Hormone 0.95 uIU/mL (0.36-3.74)
== END 2023-10-03 10:10 | disposition home or self-care (01) ==
LOC: CHSLAB 10:14
PROVIDERS: PCP Internal Medicine; Visit Provider Internal Medicine
DX: I49.3 Ventricular premature depolarization (principal); I10 Essential (primary) hypertension; E11.65 Type 2 diabetes mellitus with hyperglycemia
CPT/HCPCS: 36415; 83735; 84439; 84443; 84481

== ENCOUNTER 2023-10-14 08:15 | Outpatient (CLI) | payer MEDICARE, SELFPAY ==
--- NOTE | 2023-10-14 08:23 | ECHO_ITS ---
Patient Info Name: Magaly Howard Age: 68 years : 1955 Gender: Female Ht: 72 in Wt: 225 lbs BSA: 2.30 m2 HR: 75 bpm BP: 163 / 102 mmHg Technical Quality: Good Exam Date: 10/14/2023 8:35 AM Exam Location: Echo Lab Patient Status: Outpatient Admit Date: 10/14/2023 Staff Ordering Physician: Janki Lutz MD Cna Pct: Sahil Baires RDCS Attending Provider: Janki Lutz MD Referring Physician: Bolivar ESCOBEDO; Exam Type: CA echo doppler color flow Study Info Indications - HTN/PVCS Complete two-dimensional, color flow and Doppler transthoracic echocardiogram is performed. Summary 1. Complete two-dimensional, color flow and Doppler transthoracic echocardiogram is performed. 2. Left ventricular chamber dimension is normal. 3. Left ventricular systolic function is normal, estimated at 60-65%. 4. The left ventricular diastolic function is grade I diastolic dysfunction. 5. E/e' 9 is minimally elevated. 6. There is mild mitral valve regurgitation. 7. No pulmonary hypertension, estimated pulmonary arterial systolic pressure is 24 mmHg. Left Ventricle E/e' 9 is minimally elevated. Left ventricular chamber dimension is normal. Left ventricular systolic function is normal, estimated at 60-65%. The left ventricular diastolic function is grade I diastolic dysfunction. Right Ventricle Right ventricular systolic function is normal and with normal TAPSE 3.1 cm. Right ventricular chamber dimension is normal. Left Atria Left atrial chamber dimension is normal. Right Atria Right atrial chamber dimension is normal. Aortic Valve The aortic valve is trileaflet. There is no aortic valve stenosis. There is no aortic valve regurgitation. Pulmonic Valve There is no pulmonic regurgitation. Mitral Valve There is no mitral valve stenosis. There is mild mitral valve regurgitation. Tricuspid Valve There is no tricuspid valve regurgitation. No pulmonary hypertension, estimated pulmonary arterial systolic pressure is 24 mmHg. Pericardium/Pleural There is no pericardial effusion. Inferior Vena Cava Normal inferior vena cava with >50% collapse upon inspiration consistent with normal right atrial pressure, 5 mmHg. Aorta The aortic root size at the sinus of Valsalva is normal. Left Ventricular Outflow Tract Name Value Normal LVOT 2D LVOT Diameter 2.0 cm LVOT Doppler LVOT Peak Velocity 125 cm/s LVOT Peak Gradient 6 mmHg LVOT Mean Gradient 3 mmHg LVOT VTI 31 cm LVOT VTI/AV VTI Ratio 0.8 LVOT Stroke Volume 98 ml Pulmonic Valve Name Value Normal RVOT Doppler RVOT Peak Gradient 3 mmHg PV Doppler PV Peak Velocity 107 cm/s PV Peak Gradient
== END 2023-10-14 08:16 | disposition home or self-care (01) ==
LOC: CHSIMG 08:16
PROVIDERS: PCP Internal Medicine; Visit Provider Internal Medicine
DX: I49.3 Ventricular premature depolarization (principal); I10 Essential (primary) hypertension; I34.0 Nonrheumatic mitral (valve) insufficiency
CPT/HCPCS: 93306

== ENCOUNTER 2023-11-04 08:00 | Outpatient (CLI) | payer MEDICARE, SELFPAY ==
[2023-11-04 09:05] LABS: Magnesium 1.8 mg/dL (1.8-2.4)
== END 2023-11-04 08:01 | disposition home or self-care (01) ==
LOC: CHSLAB 08:01
PROVIDERS: PCP Internal Medicine; Visit Provider Internal Medicine
DX: E61.2 Magnesium deficiency (principal)
CPT/HCPCS: 36415; 83735

== ENCOUNTER 2024-03-19 08:08 | Outpatient (CLI) | payer MEDICARE, SELFPAY ==
[2024-03-19 08:39] LABS: Add Urine Microscopic? YES; Appearance Urine Clear (Clear); Basophils Absolute Auto 0.02 K/mm3 (0.00-0.10); Basophils Percent Auto 0.3 % (0.0-1.0); Bilirubin Urine Negative (Negative); Blood Urine Negative (Negative); Color Urine Light Yellow (Yellow); Eosinophils Percent Auto 5.2 % (1.0-6.0); Glucose Urine UA Negative (Negative); Hematocrit 40.4 % (35.0-42.0); Immature Granulocyte Absolute 0.02 K/mm3 (0.00-0.00); Immature Granulocyte Percent A 0.3 % (0.0-0.0); Ketones Urine Negative (Negative); Leukocyte Esterase Ur Trace LEU/UL (Negative); Lymphocytes Absolute Auto 1.69 K/mm3 (1.10-4.50); Lymphocytes Percent Auto 29.3 % (18.0-42.0); Mean Corpuscular HGB Conc 32.2 g/dL (32-36); Mean Corpuscular Hemoglobin 28.6 pg (27.0-31.0); Mean Corpuscular Volume 88.8 fL (78.0-102.0); Mean Platelet Volume 9.5 fl (9.2-11.8); Monocytes Absolute Auto 0.52 K/mm3 (0.10-0.90); Neutrophils Absolute Auto 3.21 K/mm3 (1.70-7.20); Neutrophils Percent Auto 55.9 % (50.0-70.0); Nitrate Urine Negative (Negative); Platelet Count Result 216 K/mm3 (150-420); Protein Urine Negative (Negative); Red Blood Count 4.55 M/mm3 (4.20-5.40); Red Cell Distribution Width 13.3 % (11.6-14.4); Specific Grav Ur 1.015 (1.010-1.020); Urobilinogen Urine 0.2 mg/dL (0.2-1.0); White Blood Count 5.8 K/mm3 (4.8-10.8); pH Urine 8.5 (5.0-8.0)
[2024-03-19 08:43] LABS: Bacteria Urine Trace /hpf; RBC Urine None seen /hpf (0-2); Squamous Epithelial Cell Urine Few /hpf (Few); WBC Urine 0-3 /hpf (0-3)
[2024-03-20 09:54] LABS: Alanine Aminotransferase 14 U/L (6-35); Albumin Level 4.3 g/dL (3.5-5.1); Alkaline Phosphatase 57 U/L (38-126); Anion Gap 9 mmol/L (4-12); Aspartate Amino Transferase 20 U/L (14-36); Bilirubin,Total 0.4 mg/dL (0.2-1.3); Blood Urea Nitrogen 26 mg/dL (7-17); Calcium 9.7 mg/dL (8.4-10.2); Carbon Dioxide 30 mmol/L (22-30); Chloride 100 mmol/L (98-107); Cholesterol 175 mg/dL (0-200); Estimated Glomerular Filt Rate 49; Glucose 105 mg/dL (65-110); HDL Direct 64 mg/dL; LDL Cholesterol Calculated 89 mg/dL (<130); Osmolality Calculated 292 mOsm/kg (285-295); Potassium 5.1 mmol/L (3.4-5.0); Sodium 139 mmol/L (137-145); Triglycerides 109 mg/dL (<150); Uric Acid 5.7 mg/dL (2.5-7.5)
[2024-03-20 11:35] LABS: Hemoglobin A1C 6.4 % (<5.7)
== END 2024-03-19 08:09 | disposition home or self-care (01) ==
PROVIDERS: PCP Internal Medicine; Visit Provider Internal Medicine
DX: E11.65 Type 2 diabetes mellitus with hyperglycemia (principal); E78.2 Mixed hyperlipidemia; N39.0 Urinary tract infection, site not specified; E79.0 Hyperuricemia without signs of inflammatory arthritis and tophaceous disease
CPT/HCPCS: 36415; 80053; 80061; 81001; 83036; 84550; 85025

== ENCOUNTER 2024-09-25 07:37 | Outpatient (CLI) | payer MEDICARE, SELFPAY ==
--- OUTSIDE RECORDS SUMMARY | 2024-09-25 07:43 | XMS_ITS | Clinical Summary ---
Author Organization [facility] Address [facility] [place] [address] Care Team Providers Care Music Education Adjunct Professor Name Role Phone Janki Lutz MD Primary Care Provider [phone] Allergies Active Allergy Reactions Criticality Noted Date Comments Tcpevuk-Hca-Nlf Reductase Inhibitors Muscle pain Medium 02/13/2024 Medications allopurinoL (ZYLOPRIM) 300 mg tablet Take 1 tablet (300 mg total) by mouth daily with lunch 0 Active glimepiride (AMARYL) 4 mg tablet Take 8 mg by mouth daily with lunch 0 Active lisinopriL (PRINIVIL,ZEST RIL) 30 mg tablet Take 1 tablet (30 mg total) by mouth daily with lunch 0 Active metFORMIN XR (GLUCOPHAGE XR) 500 mg 24 hr tablet Take 2 tablets (1,000 mg total) by mouth 2 (two) times a day DAILY AT LUNCH AND NIGHTLY 0 Active melatonin 10 mg tablet 10 mg nightly as needed Active Praluent Pen 75 mg/mL pen injector 4 Active Ozempic 2 mg/dose (8 mg/3 mL) pen injector injection INJECT 2 MG SUBCUTANEOUSLY ONCE WEEKLY ON THE SAME DAY OF THE WEEK 4 Active magnesium gluconate (MAGONATE) 500 mg (27 mg elemental) tabletIndicati ons:hypomagnes emia Active metoprolol XL (TOPROL-XL) 25 mg extended release tablet Take 1 tablet (25 mg total) by mouth daily 30 tablet 11 4 025 Active Active Problems Problem Noted Date Diagnosed Date 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 Gender Identity Not on file Sexual Orientation Not on file Obstetrics History Para Term AB IAB SAB Ectopic Multiple Livin g Live Births 2 2 2 2 Date Outcome GA Total Labor Labor/2nd/3rd Weight Sex Type Anes PTL Aleja A1 A5 Name Clin Term Term Last Filed Vital Signs Vital Sign Reading Time Taken Comments Blood Pressure 126/71 02/13/2024 12:49 PM CDT Pulse 49 02/13/2024 12:49 PM CDT Temperature 36.4 C (97.6 F) 04/07/2020 10:18 AM CDT Respiratory Rate 16 04/07/2020 10:1 8 AM CDT Oxygen Saturation 97% 02/13/2024 12: 49 PM CDT Inhaled Oxygen Concentration - - Weight 105.9 kg (233 lb 6.4 oz) 024 12:49 PM CDT Height 180.3 cm (5' 11 ) 02/13/2024 12: 49 PM CDT Body Mass Index 32.55 02/13/2024 12:49 PM CDT Plan of Treatment Health Maintenance Due Date Last Done Comments Albumin Creatinine Ratio, Urine 1955 Breast Cancer Screening-Mammogram 1955 Colon Cancer Screening-Colonoscopy 1955 Depression Screening 1955 Hemoglobin A1C 1955 Hepatitis C Screening 1955 Osteoporosis Screening-Bone Density Scan 1955 eGFR 1955 Dilated Eye Exam 1955 Foot Exam 1955 Lipid Panel 1955 Hepatitis B Screening 1971 Zoster Vaccine (2 of 3) 09/05/2012 07/11/2012 Well Visit 65+ 2018 Fall Risk Assessment 03/22/2021 03/22/2020 DTaP/Tdap/Td Vaccine (2 - Td or Tdap) 06/11/2022 Influenza Vaccine (#1) 2024 Pneumococcal vaccine 65+ Completed 019, 01/09/2018, 12/25/2012 Insurance [facility] MEDICARE MEDICARE [facility] MED[facility] Address: [address] [address] [place] [address] [employer] MEDICARE Advance Directives For more information, please contact: [phone] * Full Code (Latest Code Status on File) Date Activated Date Inactivated Comments 03/22/2020 10:18 AM 03/23/2020 3:27 AM Care Teams Music Education Adjunct Professor Relationship Specialty Start Date End Date Janki Lutz MD [address] [place] [address] PCP - General Internal Medicine 02/25/20
--- OUTSIDE RECORDS SUMMARY | 2024-09-25 07:43 | XMS_ITS | Clinical Summary ---
Author Organization [facility] Address [address] [place] [id number] Care Team Providers Care Bottling Attendant Name Role Phone Unavailable Primary Care Provider Unavailabl e Social History Tobacco Use Types Packs/Day Years Used Date Smoking Tobacco: Never Assessed Comments Unknown Sex and Gender Information Value Date Recorded Sex Assigned at Not on file Legal Sex Female 8:22 PM CDT Gender Identity Not on file Sexual Orientation Not on file Plan of Treatment Health Maintenance Due Date Last Done Comments Colorectal Cancer Screening Colonoscopy (10 Years) 1955 Hepatitis C 1971 DTaP, Tdap and Td Vaccines ( 1 - Tdap) 1972 Mammogram Screening 1993 Zoster Vaccines (1 of 2) 2003 Dexa Scan (General) 2018 Pneumococcal Vaccine: 65+ Ye ars (1 of 1 - PCV) 2018 COVID-19 Vaccine (2023-2 5 season) 2024 Influenza Adult (#1) 2024 RSV Immunization or 60+ Years (1 - 1-dose 75+ series) 2028 Meningococcal B Vaccine Aged Out No l onger eligible based on patient's age to complete this topic Meningococcal Vaccine Aged Out No pamela emily eligible based on patient's age to complete this topic RSV Immunizations Under 20 Months Aged Out No longer eligible based on patient's age to complete this topic
--- OUTSIDE RECORDS SUMMARY | 2024-09-25 07:43 | XMS_ITS | Referral Summary ---
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 Pelvic mass 02/25/2020 Social History Tobacco Use Types Packs/Day Years Used Date Smoking Tobacco: Never Smokeless Tobacco: Never Alcohol Use Standard Drinks/Week Comments Yes 0 (1 standard drink = 0.6 oz pur e alcohol) OCCASSIONALLY Comments No Sex and Gender Information Value Date Recorded Sex Assigned at Not on file 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 Gender Identity Not on file Sexual Orientation Not on file Last Filed Vital Signs Vital Sign Reading [...] 02/13/2024 12:49 PM CDT Plan of Treatment Not on file Insurance AET MEDICARE MEDICARE [facility] Address: [facility] [address] [place] [address] [employer] MEDICARE [facility] MEDIC[facility] Address: [facility] [id number] [place] [address] Advance Directives For more information, please contact: [phone] * Full Code (Latest Code Status on File) Date Activated Date Inactivated Comments 03/22/2020 10:18 AM 03/23/2020 3:27 AM Care Teams Invasive Cardiologist Relationship Specialty Start Date End Date Janki Lutz MD [address] [place] [address] PCP - General Internal Medicine 02/25/20
[2024-09-25 08:12] LABS: Hematocrit 39.7 % (35.0-42.0); Hemoglobin 12.5 g/dL (11.7-13.8); Mean Corpuscular HGB Conc 31.5 g/dL (32-36); Mean Corpuscular Hemoglobin 28.4 pg (27.0-31.0); Mean Corpuscular Volume 90.2 fL (78.0-102.0); Mean Platelet Volume 9.2 fl (9.2-11.8); Platelet Count Result 212 K/mm3 (150-420); Red Cell Distribution Width 13.8 % (11.6-14.4); White Blood Count 5.3 K/mm3 (4.8-10.8)
[2024-09-25 08:18] LABS: Add Urine Microscopic? YES; Appearance Urine Clear (Clear); Bilirubin Urine Negative (Negative); Blood Urine Negative (Negative); Color Urine Light Yellow (Yellow); Glucose Urine UA Negative (Negative); Ketones Urine Negative (Negative); Leukocyte Esterase Ur Trace (Negative); Nitrate Urine Negative (Negative); Protein Urine Negative (Negative); Urobilinogen Urine 0.2 mg/dL (0.2-1.0); pH Urine 7.5 (5.0-8.0)
[2024-09-25 08:35] LABS: Hemoglobin A1C 6.6 % (<5.7)
[2024-09-25 08:36] LABS: Alanine Aminotransferase 22 U/L (14-59); Alkaline Phosphatase 73 U/L (46-116); Anion Gap 7 mmol/L (4-12); Aspartate Amino Transferase 10 U/L (15-37); Bilirubin,Total 0.5 mg/dL (0.00-1.00); Blood Urea Nitrogen 29 mg/dL (7-18); Calcium 9.8 mg/dL (8.5-10.1); Carbon Dioxide 30 mmol/L (21-32); Chloride 106 mmol/L (98-108); Cholesterol 229 mg/dL (0-200); Creatine Kinase 54 U/L (26-192); Estimated Glomerular Filt Rate 53; Free T4 Free Thyroxine 0.97 ng/dL (0.76-1.46); Glucose 121 mg/dL (70-99); HDL Direct 56 mg/dL (40-60); LDL Cholesterol Calculated 141 mg/dL (<130); Magnesium 1.9 mg/dL (1.8-2.4); Osmolality Calculated 302 mOsm/kg (285-295); Potassium 5.5 mmol/L (3.5-5.1); Sodium 143 mmol/L (136-145); Thyroid Stimulating Hormone 1.17 uIU/mL (0.36-3.74); Triglycerides 159 mg/dL (0-150); Uric Acid 5.4 mg/dL (2.6-6.0)
[2024-09-25 09:40] LABS: Bacteria Urine Trace /hpf; RBC Urine None seen /hpf (0-2); Renal Epithelial Cells Urine Few /hpf; Squamous Epithelial Cell Urine Few /hpf (Few); WBC Urine 0-3 /hpf (0-3)
== END 2024-09-25 07:38 | disposition home or self-care (01) ==
LOC: CHSLAB 07:40
PROVIDERS: PCP Internal Medicine; Visit Provider Internal Medicine
DX: I10 Essential (primary) hypertension (principal); E79.0 Hyperuricemia without signs of inflammatory arthritis and tophaceous disease; E78.2 Mixed hyperlipidemia; E11.9 Type 2 diabetes mellitus without complications; I49.3 Ventricular premature depolarization; N39.0 Urinary tract infection, site not specified
CPT/HCPCS: 36415; 80053; 80061; 81001; 82550; 83036; 83735; 84439; 84443; 84550; 85027; 87086

== ENCOUNTER 2024-10-08 09:27 | Outpatient (CLI) | payer MEDICARE, SELFPAY ==
--- OUTSIDE RECORDS SUMMARY | 2024-10-08 10:06 | XMS_ITS | Clinical Summary ---
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
--- OUTSIDE RECORDS SUMMARY | 2024-10-08 10:06 | XMS_ITS | Referral Summary ---
Author Organization [facility] Address [facility] [place] [address] Care Team Providers Care Jboss Architect Name Role Phone Janki Lutz MD Primary Care Provider [phone] Allergies Active Allergy Reactions Criticality Noted Date Comments Xlccfgq-Dca-Kix Reductase Inhibitors Muscle pain Medium 02/13/2024 Medications [...] on file Legal Sex Female 10:31 AM X RAY TECH Gender Identity Not on file Sexual Orientation [...] Treatment Not on file Insurance AET MEDICARE [facility] [place] [address] [facility] Advance Directives For more information, please contact: [phone] * Full Code (Latest Code Status on File) Date Activated Date Inactivated Comments 03/22/2020 10:18 AM 03/23/2020 3:27 AM Care Teams Jboss Architect Relationship Specialty Start Date End Date Janki Lutz MD [address] [place] [address] PCP - General Internal Medicine 02/25/20
--- OUTSIDE RECORDS SUMMARY | 2024-10-08 10:06 | XMS_ITS | Clinical Summary ---
Author Organization [facility] Address [address] [place] [address] Care Team Providers Care Computational Physicist Name Role Phone Unavailable Primary Care Provider [...]
--- NOTE | 2024-10-12 12:54 | WPDHOLTEREM ---
Holter/Event Monitor Holter/Event Monitor Date of procedure: 10/08/24 Holter/Event Procedure: 24 Hr Holter Monitor Indications: Palpitations Conclusion: 1. 24 hour holter monitor on 10/08/24. 2. Underlying rhythm is sinus rhythm. HR range 67-112 bpm; average HR 87 bpm. 3. There are 6 premature supraventricular complexes, 1 supraventricular triplet. No supraventricular tachycardia. 4. There are 8,378 premature ventricular complexes, 249 ventricular couplets, 9 ventricular triplets, 4,464 ventricular bigeminy and 383 ventricular trigeminy. No ventricular tachycardia. 5. No significant pauses greater than 2 seconds. 6. No symptoms available for correlation.
== END 2024-10-08 09:28 | disposition home or self-care (01) ==
LOC: CHSCARD 09:29
PROVIDERS: PCP Internal Medicine; Visit Provider Internal Medicine
DX: R00.2 Palpitations (principal)
CPT/HCPCS: 93225; 93226

== ENCOUNTER 2024-10-22 11:59 | Outpatient (CLI) | payer MEDICARE, SELFPAY ==
--- NOTE | ~2024-10-22 | MM_ITS ---
EXAMINATION: MM screening [facility] BI w torie HISTORY: Screening TECHNIQUE: Craniocaudal and mediolateral oblique 3-D tomosynthesis images were obtained and synthetic 2-D images were generated. CAD analysis was submitted and interpreted. COMPARISON: Comparison to multiple prior studies sequentially, with oldest reviewed study dated 01/09. BREAST PARENCHYMAL COMPOSITION: Not dense: There are scattered areas of fibroglandular density. FINDINGS: Stable benign-appearing partially obscured mass lateral aspect of the right breast at appro ximately 9:00 position, middle third. There is no evidence of suspicious mass, calcification, or arch itectural distortion to suggest malignancy in either breast. There has been no suspicious interval ch sebastian. IMPRESSION: 1. No mammographic evidence of malignancy. 2. Recommend routine screening mammography in one year. BI-RADS Category 2: Benign finding(s). Reviewed, dictated and finalized at location A.
--- OUTSIDE RECORDS SUMMARY | 2024-10-22 12:36 | XMS_ITS | Clinical Summary ---
Author Organization [facility] Address [address] [place] [address] Care Team Providers Care Tube Inspector Name Role Phone Janki Lutz MD Primary Care Provider [phone] Allergies Active Allergy Reactions Criticality Noted Date Comments Uefyfzm-Kyn-Bgo Reductase Inhibitors Muscle pain Medium 02/13/2024 Medications allopurinoL (ZYLOPRIM) 300 mg tablet Take 1 tablet (300 mg total) by mouth daily with lunch 02/21/20 Active glimepiride (AMARYL) 4 mg tablet Take 8 mg by mouth daily with lunch 11/24/19 Active lisinopriL (PRINIVIL,ZES TRIL) 30 mg tablet Take 1 tablet (30 mg total) by mouth daily with lunch 02/24/20 20 Active metFORMIN XR (GLUCOPHAGE XR) 500 mg 24 hr tablet Take 2 tablets (1,000 mg total) by mouth 2 (two) times a day DAILY AT LUNCH AND NIGHTLY 02/05/20 Active melatonin 10 mg tablet 10 mg nightly as needed Active Praluent Pen 75 mg/mL pen injector 02/10/20 24 Active magnesium gluconate (MAGONATE) 500 mg (27 mg elemental) tabletIndicat ions:hypomagn esemia Active metoprolol XL (TOPROL-XL) 25 mg extended release tablet Take 1 tablet (25 mg total) by mouth daily 30 tablet 11 04/06/20 24 2024 Active Mounjaro 15 mg/0.5 mL pen injector injection 10/08/19 Active Ozempic 2 mg/dose (8 mg/3 mL) pen injector injection INJECT 2 MG SUBCUTANEOUSLY ONCE WEEKLY ON THE SAME DAY OF THE WEEK 01/03/202024 Discontinued Active Problems Problem Noted Date Diagnosed Date PVC's (premature ventricular contractions) 10/12 Assessment & Plan (10/12/2024 2:46 PM CDT): Holter from 02/2024 with an AFib burden of 20%. Echo with preserved LVEF. She was therefore started on metoprolol XL 25 mg daily. Palpitations have improved. Had an EKG recently with PCP and noted to have PVCs. 24 hour Holter therefore placed. Results are pending. Continue metoprolol XL 25 mg daily. Will follow-up on Holter and consider increase in metoprolol dose. Essential hypertension 10/12/2024 Assessment & Plan (10/12/2024 2:47 PM CDT): Well controlled. Continue therapy with lisinopril 30 mg daily and metoprolol XL 25 mg daily. 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 Pelvic mass 02/25/2020 Encounters Date Type Department Care Team Description 10/12/2024 2:00 PM CDT Office Visit [facility] Cardiology [address] [facility] [address]th [place] [address] [place] [address] Manjit Walden NP PVC's (premature ventricular contractions) (Primary Dx); Essential hypertension 10/08/2024 Orders Only [facility] Scanning, Provider from Last 3 Months Surgical History Surgery Date Site/Laterality Comments APPENDECTOMY 07/15/1957 - 07/14/1958 HYSTERECTOMY 07/15/1995 - 07/14/1996 PARATHYROIDECTOMY 07/15/2008 - 07/14/2009 COLECTOMY 07/15/2001 - 07/14/2002 endometriosis. COLOSTOMY CLOSURE 07/15/2002 - 07/14/2003 URETHRAL SLING 11/13/2019 - 12/13/2019 LAPAROSCOPY 03/22/2020 Medical History Medical History Date Comments Hypertension Diabetes mellitus (HCC) Endometriosis High cholesterol Gout Family History Medical History Relation Name Comments No Known Problems Mother Relation Name Status Comments Father Mother Social History Tobacco Use Types Packs/Day Years Used Date Smoking Tobacco: Never Smokeless Tobacco: Never Tobacco Cessation:Counseling Given: Not Answered Alcohol Use Standard Drinks/Week Comments Yes 0 (1 standard drink = 0.6 oz pur e alcohol) OCCASSIONALLY Comments No Sex and Gender Information Value Date Recorded Sex Assigned at Not on file Legal Sex Female 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 Gender Identity Not on file Sexual Orientation Not on file Obstetrics History Para Term AB IAB SAB Ectopic Multiple Livin g Live Births 2 2 2 2 Date Outcome GA Total Labor Labor/2nd/3rd Weight Sex Type Anes PTL Aleja A1 A5 Name Clin Term Term Last Filed Vital Signs Vital Sign Reading Time Taken Comments Blood Pressure 140/57 10/12/2024 1:48 PM CDT Pulse 98 10/12/2024 1:48 PM CDT Temperature 36.4 C (97.6 F) 04/07/2020 10:18 AM CDT Respiratory Rate 16 04/07/2020 10:18 AM CDT Oxygen Saturation 97% 10/12/2024 1:48 PM CDT Inhaled Oxygen Concentration - - Weight 111.1 kg (245 lb) 10/12/2024 1:48 PM CDT Height 180.3 cm (5' 11 ) 10/12/2024 1:48 PM CDT Body Mass Index 34.17 10/12/2024 1:48 PM CDT Plan of Treatment Health Maintenance [...] - Td or Tdap) 06/11/2022 Influenza Vaccine (Season Ended) 2025 Pneumococcal vaccine 65+ Completed 019, 01/09/2018, 12/25/2012 Procedures Procedure Name Priority Date/Time Associated Diagnosis Comments CARDIOLOGY DOCUMENT SCAN 10/08/2024 from Last 3 Months Results * Cardiology Document Scan (10/08/2024) Anatomical Region Laterality Modality Other us Provider Scanning CV CARDIAC SERVICES PROCEDURES Edited Result - Final from Last 3 Months Insurance [facility] MEDICARE ADVANTAGE [facility] Address: [address] [address] [place] [address] [facility] MEDIC[facility] Advance Directives For more information, please contact: [phone] * Full Code (Latest Code Status on File) Date Activated Date Inactivated Comments 03/22/2020 10:18 AM 03/23/2020 3:27 AM Care Teams Tube Inspector Relationship Specialty Start Date End Date Janki Lutz MD [address] [place] [address] PCP - General Internal Medicine 02/25/20
--- OUTSIDE RECORDS SUMMARY | 2024-10-22 12:36 | XMS_ITS | Clinical Summary ---
Author Organization [facility] Address [address] [place] [address] Care Team Providers Care Senior Principal Name Role Phone Unavailable Primary Care Provider [...] of 1 - PCV) 2018 COVID-19 Vaccine ( - 2023-2 5 season) 2024 RSV Immunization or 60+ Years (1 [...]
--- OUTSIDE RECORDS SUMMARY | 2024-10-22 12:36 | XMS_ITS | Referral Summary ---
Author Organization [facility] Address [address] [place] [address] Care Team Providers Care Installer Interior Assemblies Name Role Phone Janki Lutz MD Primary Care Provider [phone] Encounters Date Type Department Care Team Description 10/12/2024 2:00 PM CDT Office Visit [facility] Cardiology [address] [facility] 8th [place] [address] [place] [address] Manjit Walden NP PVC's (premature ventricular contractions) (Primary Dx); Essential hypertension 10/08/2024 Orders Only [facility] Scanning, Provider from Last 3 Months Allergies Active Allergy Reactions Criticality Noted Date Comments Xwgoqms-Foy-Hwz Reductase Inhibitors Muscle pain Medium 02/13/2024 Medications allopurinoL (ZYLOPRIM) 300 mg tablet Take 1 tablet (300 mg total) by mouth daily with lunch 02/21/20 20 Active glimepiride (AMARYL) 4 mg tablet Take 8 mg by mouth daily with lunch 11/24/19 20 Active lisinopriL (PRINIVIL,ZES TRIL) 30 mg tablet Take 1 tablet (30 mg total) by mouth daily with lunch 02/24/20 20 Active metFORMIN XR (GLUCOPHAGE XR) 500 mg 24 hr tablet Take 2 tablets (1,000 mg total) by mouth 2 (two) times a day DAILY AT LUNCH AND NIGHTLY 02/05/20 20 Active melatonin 10 mg tablet 10 mg [...] ON THE SAME DAY OF THE WEEK 01/03/20 24 2024 Discontinued Active Problems Problem Noted Date Diagnosed [...] on file 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 Gender Identity Not on file Sexual Orientation [...] 10/12/2024 1:48 PM CDT Plan of Treatment Not on file Procedures Procedure Name Priority Date/Time Associated Diagnosis Comments CARDIOLOGY DOCUMENT SCAN 10/08/2024 from Last 3 Months Results * Cardiology Document Scan (10/08/2024) Anatomical Region Laterality Modality Other us Provider Scanning CV CARDIAC SERVICES PROCEDURES Edited Result - Final from Last 3 Months Insurance [facility] MEDICARE Address: [facility] [id number] [place] [address] UHC MEDICARE ADVANTAGE [employer] MEDICARE Advance Directives For more information, please contact: [phone] * Full Code (Latest Code Status on File) Date Activated Date Inactivated Comments 03/22/2020 10:18 AM 03/23/2020 3:27 AM Care Teams Installer Interior Assemblies Relationship Specialty Start Date End Date Janki Lutz MD [address] [place] [address] PCP - General Internal Medicine 02/25/20
== END 2024-10-22 12:00 | disposition home or self-care (01) ==
PROVIDERS: PCP Internal Medicine; Visit Provider Internal Medicine
DX: Z12.31 Encounter for screening mammogram for malignant neoplasm of breast (principal)
CPT/HCPCS: 77063; 77067

== ENCOUNTER 2025-03-31 12:50 | Outpatient (CLI) | payer MEDICARE, SELFPAY ==
--- NOTE | ~2025-03-31 | DEXA_ITS ---
Bone Density Report Name: MARJ LOOMIS Age: 69 Sex: Female Ethnicity: White Date of : 1955 Indication: hyperparathyroidism; height loss; hysterectomy; Referring Provider: Janki Lutz Study: Bone densitometry was performed. Exam Date: March 31, 2025 Accession number: [id number] Bone Density: Region BMD T-score Z-score Classification AP Spine(L1-L4) 0.990 -0.5 1.7 Normal Femoral Neck (Left) 0.653 -1.8 0.1 Osteopenia Total Hip (Left) 0.965 0.2 1.8 Normal Femoral Neck (Right) 0.676 -1.6 0.3 Osteopenia Total Hip (Right) 0.996 0.4 2.0 Normal Femoral Neck Mean 0.664 -1.7 0.2 Osteopenia Total Hip Mean 0.980 0.3 1.9 Normal World Health Organization criteria for BMD impression classify patients as: Normal (T-score at or above -1.0), Osteopenia (T-score between -1.0 and -2.5), or Osteoporosis (T-score at or below -2.5). 10-year Fracture Risk(1): Major Osteoporotic Fracture 10% Hip Fracture 1.8% Reported Risk Factors: [place] (), Neck BMD=0.653, BMI=33.2 (1) FRAX(R) Version 3.08. Fracture probability calculated for an untreated patient. Fracture probability may be lower if the patient has received treatment. Previous Exams: Region Exam Age BMD T-score BMD Change BMD Change Date g/cm2 vs Baseline vs Previous AP Spine (L1-L4) 03/31/2025 69 0.990 -0.5 0.030 (3.1%)# 0.030 (3.1%)# 12/27/2022 67 0.960 -0.8 Total Hip(Left) 03/31/2025 69 0.965 0.2 0.027 (2.9%)# 0.027 (2.9%)# 12/27/2022 67 0.938 0.0 Total Hip(Right) 03/31/2025 69 0.996 0.4 0.036 (3.8%)# 0.036 (3.8%)# 12/27/2022 67 0.960 0.1 *Denotes significance at 95% confidence level, LSC for AP Spine = 0.022 g/cm2, LSC for Total Hip = 0.027 g/cm2 # Denotes dissimilar scan types or analysis methods Clinical Information Provided by Patient: Has used the following medications: Vitamin D Has the following medical conditions: Hyperparathyroidism, Hysterectomy Patient maximum height was 71 Menopause Age: 40 No regular weight bearing exercise Onset of menses at age 9 Number of children 2 Impression: The patient has low bone mass, based on the Left Femoral Neck T-score. No significant bone loss was observed. Discussion: BONE DENSITY IS LOW AT ONE OR MORE SKELETAL SITES. This patient's lowest T-score is low at one or more skeletal sites. It meets the World Health Organization's (WHO) criteria for ?low bone mass? (T-score between -1.0 and -2.5). The patient's 10-year risk of fracture as calculated by FRAX is less than the threshold where pharmacological therapy is recommended by the National Osteoporosis Foundation (NOF). However, all treatment decisions require clinical judgment and consideration of individual patient factors, including patient preferences, comorbidities, previous drug use, risk factors not captured in the FRAX model (e.g., frailty, falls, vitamin D deficiency, increased bone turnover, interval significant decline in bone density) and possible under or overestimation of fracture risk by FRAX. The patient should follow a healthful lifestyle (good nutrition with adequate calcium and vitamin D, and appropriate weight-bearing exercise). Follow-Up: Consider repeating this study in 2 to 3 years to reassess this patient's status, or sooner if there is some new clinical indication. Reported by: GILDARDO on 03/31/2025 1:14:00 PM. Reviewed, dictated and finalized at location A.
--- OUTSIDE RECORDS SUMMARY | 2025-03-31 12:57 | XMS_ITS | Clinical Summary ---
Author Organization [facility] Address [address] [place] [address] Care Team Providers Care Head Girls Golf Coach Name Role Phone Unavailable Primary Care Provider [...] 1 - Tdap) 1972 Mammogram Screening 1993 Pneumococcal Vaccine: 50+ Ye ars (1 of 1 - PCV) 2003 Zoster Vaccines (1 of 2) 2003 Dexa Scan (General) 2018 COVID-19 Vaccine (2023-2 5 season) 2025 RSV Immunization or 60+ Years (1 - [...]
--- OUTSIDE RECORDS SUMMARY | 2025-03-31 12:57 | XMS_ITS | Clinical Summary ---
Author Organization [facility] Address [facility] [place] [address] Care Team Providers Care Physical Education Instructor Name Role Phone Janki Lutz MD Primary Care Provider + [phone] Allergies Active Allergy Reactions Criticality Noted Date Comments Wsjlcrz-Ero-Hyc Reductase Inhibitors Muscle pain Medium 02/13/2024 Medications allopurinoL (ZYLOPRIM) 300 mg tablet Take 1 tablet (300 mg total) by mouth daily with lunch 02/21/2020 Active glimepiride (AMARYL) 4 mg tablet Take 8 mg by mouth daily with lunch 11/24/2019 Active lisinopriL (PRINIVIL,ZESTR IL) 30 mg tablet Take 1 tablet (30 mg total) by mouth daily with lunch 02/24/2020 Active metFORMIN XR (GLUCOPHAGE XR) 500 mg 24 hr tablet Take 2 tablets (1,000 mg total) by mouth 2 (two) times a day DAILY AT LUNCH AND NIGHTLY 02/05/2020 Active melatonin 10 mg tablet 10 mg nightly as needed Active Praluent Pen 75 mg/mL pen injector 02/10/2024 Active magnesium gluconate (MAGONATE) 500 mg (27 mg elemental) tabletIndicatio ns:hypomagnesem ia Active metoprolol XL (TOPROL-XL) 25 mg extended release tablet Take 1 tablet (25 mg total) by mouth daily 30 tablet 11 04/06/2024 Active Mounjaro 15 mg/0.5 mL pen injector injection 10/07/2024 Active Active Problems Problem Noted Date Diagnosed [...] on file 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 Gender Identity Not on file Sexual Orientation [...] 1:48 PM CDT Height 180.3 cm (5' 11) 10/12/2024 1:48 PM CDT Body Mass Index 34.17 10/12/2024 1:48 PM CDT Plan of Treatment Health Maintenance Due Date Last Done Comments Breast Cancer Screening-Mammogram 1955 Colon Cancer Screening-Colonoscopy 1955 Depression Screening 1955 Hepatitis C Screening 1955 Osteoporosis Screening-Bone Density Scan 1955 Hepatitis B Screening 1971 Zoster Vaccine (2 of 3) 09/05/2012 07/11/2012 Well Visit 65+ 2018 Fall Risk Assessment 03/22/2021 03/22/2020 DTaP/Tdap/Td Vaccine (2 - Td or Tdap) 06/11/2022 Influenza Vaccine (#1) 2025 Pneumococcal vaccine 65+ Completed 019, 01/09/2018, 12/25/2012 Insurance AET MEDICARE [facility] MEDICARE ADVANTAGE [facility] MEDIC[facility] Address: [address] [address] [place] [address] [facility] Address: [address] [place] [address] Advance Directives For more information, please contact: [phone] * Full Code (Latest Code Status on File) Date Activated Date Inactivated Comments 03/22/2020 10:18 AM 03/23/2020 3:27 AM Care Teams Physical Education Instructor Relationship Specialty Start Date End Date Janki Lutz MD [address] [place] [address] PCP - General Internal Medicine 02/25/20
== END 2025-03-31 12:51 | disposition home or self-care (01) ==
PROVIDERS: PCP Internal Medicine; Visit Provider Internal Medicine
DX: M81.0 Age-related osteoporosis without current pathological fracture (principal); M85.852 Other specified disorders of bone density and structure, left thigh; M85.851 Other specified disorders of bone density and structure, right thigh
CPT/HCPCS: 77080

== ENCOUNTER 2025-04-09 07:33 | Outpatient (CLI) | payer MEDICARE, SELFPAY ==
--- OUTSIDE RECORDS SUMMARY | 2025-04-09 07:37 | XMS_ITS | Clinical Summary ---
Author Organization [facility] Address [address] [place] [address] Care Team Providers Care Roll Or Tape Edge Machine Operator Name Role Phone Unavailable Primary Care Provider [...]
[2025-04-09 07:46] LABS: Hematocrit 40.2 % (35.0-42.0); Hemoglobin 12.8 g/dL (11.7-13.8); Mean Corpuscular HGB Conc 31.8 g/dL (32-36); Mean Corpuscular Hemoglobin 29.2 pg (27.0-31.0); Mean Corpuscular Volume 91.6 fL (78.0-102.0); Platelet Count Result 190 K/mm3 (150-420); Red Blood Count 4.39 M/mm3 (4.20-5.40); White Blood Count 5.1 K/mm3 (4.8-10.8)
[2025-04-09 07:47] LABS: Add Urine Microscopic? YES; Appearance Urine Clear (Clear); Glucose Urine UA Negative (Negative); Leukocyte Esterase Ur Trace (Negative); Nitrate Urine Negative (Negative); Specific Grav Ur 1.010 (1.010-1.020)
[2025-04-09 08:13] LABS: Hemoglobin A1C 6.6 % (<5.7)
[2025-04-09 08:17] LABS: Alanine Aminotransferase 17 U/L (6-35); Albumin Level 4.5 g/dL (3.5-5.1); Alkaline Phosphatase 48 U/L (38-126); Anion Gap 8 mmol/L (4-12); Aspartate Amino Transferase 25 U/L (14-36); Bilirubin,Total 0.6 mg/dL (0.2-1.3); Blood Urea Nitrogen 27 mg/dL (7-17); Calcium 10.1 mg/dL (8.4-10.2); Carbon Dioxide 31 mmol/L (22-30); Chloride 104 mmol/L (98-107); Cholesterol 190 mg/dL (0-200); Creatine Kinase 63 U/L (30-135); Estimated Glomerular Filt Rate 55; Glucose 122 mg/dL (65-110); HDL Direct 58 mg/dL; Magnesium 2.0 mg/dL (1.6-2.3); Osmolality Calculated 302 mOsm/kg (285-295); Potassium 5.4 mmol/L (3.4-5.0); Sodium 143 mmol/L (137-145); Total Protein 7.9 g/dL (6.3-8.2); Triglycerides 168 mg/dL (<150); Uric Acid 6.0 mg/dL (2.5-7.5)
[2025-04-09 08:33] LABS: Free T4 Free Thyroxine 1.26 ng/dL (0.78-2.19)
[2025-04-09 08:47] LABS: Thyroid Stimulating Hormone 1.140 uIU/mL (0.465-4.680)
== END 2025-04-09 07:34 | disposition home or self-care (01) ==
LOC: CHSLAB 07:35
PROVIDERS: PCP Internal Medicine; Visit Provider Internal Medicine
DX: I10 Essential (primary) hypertension (principal); E79.0 Hyperuricemia without signs of inflammatory arthritis and tophaceous disease; E11.9 Type 2 diabetes mellitus without complications; E78.2 Mixed hyperlipidemia; R53.82 Chronic fatigue, unspecified; I49.3 Ventricular premature depolarization; N39.0 Urinary tract infection, site not specified; M81.0 Age-related osteoporosis without current pathological fracture
CPT/HCPCS: 36415; 80053; 80061; 81001; 82306; 82550; 83036; 83735; 84439; 84443; 84550; 85027; 87086